=== PATIENT | male | born 2000 | race Two or more races ===

== ENCOUNTER 2024-09-03 14:04 | Inpatient (IN) | payer OTHER ==
[~2024-09-03] VITALS: Ht 200.7 cm; Wt 74.8 kg
[2024-09-03] MEDS ORDERED: FAMOTIDINE/PF 20 MG/2 ML VIAL ONE (17:13)
[2024-09-03] MEDS ORDERED: ONDANSETRON HCL 2 MG/ML VIAL ONE (17:13)
[2024-09-03] MEDS ORDERED: 0.9 % SODIUM CHLORIDE 1,000 ML IV ONE (17:15)
[2024-09-03] MEDS ORDERED: ONDANSETRON HCL 2 MG/ML VIAL IV ONE (17:15)
[2024-09-03] MEDS ORDERED: TAMSULOSIN HCL 0.4 MG CAP PO ONE ×2 (17:15)
[2024-09-03] MEDS ORDERED: KETOROLAC TROMETHAMINE 30 MG VIAL IV ONE (17:15)
[2024-09-03] MEDS ORDERED: FAMOtidine 10 MG/ML (4ML VIAL) IV PUSH ONE (17:15)
[2024-09-03] MEDS ORDERED: levoFLOXacin IN DEXTROSE 5 % 500MG/100ML PIGGYBAG IV ONE ×2 (17:30→18:14)
[2024-09-03] MEDS ORDERED: LEVALBUTEROL HCL 1.25 MG/3 ML SOLUTION IH ONE (17:45)
[2024-09-03] MEDS ORDERED: METHYLPREDNISOLONE SOD SUCC 125 MG VIAL IV ONE (17:45)
[2024-09-03] MEDS ORDERED: IPRATROPIUM BROMIDE 0.5 MG/2.5 ML AMPUL.NEB IH ONE ×2 (17:45→19:34)
[2024-09-03] MEDS ORDERED: KETOROLAC TROMETHAMINE 30 MG VIAL ONE (18:14)
[2024-09-03] MEDS ORDERED: METHYLPREDNISOLONE SOD SUCC 125 MG VIAL ONE (18:14)
[2024-09-03 18:38] LABS: BASO % 0.4 % (0.1-1.2); HEMOGLOBIN 13.9 g/dL (13.7-17.5); LYMPH # 0.46 (1.18-3.74); LYMPH % 8.2 % (19.3-53.1); MEAN CORPUSCULAR HEMOGLOBIN 29.8 pg (25.6-32.2); MONO # 0.25 (0.24-0.82); MONO % 4.4 % (4.7-12.5); NEUT # 4.87 (1.56-6.13); NEUT % 86.6 % (34.0-71.1); RED BLOOD COUNT 4.66 M/uL (4.63-6.08); RED CELL DISTRIBUTION WIDTH 11.7 % (11.6-14.4)
[2024-09-03 18:39] LABS: PLATELET COUNT 120 K/uL (163-369)
[2024-09-03 18:54] LABS: COVID-19 AG NEGATIVE (NEGATIVE)
[2024-09-03 18:57] LABS: INR 1.27; PARTIAL THROMBOPLASTIN TIME 33.7 SECONDS (22.0-34.0); PROTHROMBIN TIME 13.6 SECONDS (9.0-11.5)
[2024-09-03 19:00] LABS: ALBUMIN 3.1 gm/dL (3.4-5.0); BILIRUBIN TOTAL 2.39 mg/dL (0.3-1.2); CALCIUM 8.7 mg/dL (8.5-10.1); CREATININE SERUM 1.05 mg/dL (0.70-1.30); GFR 85.38; GLOBULINA 3.8 G/DL (2.4-3.5); POTASSIUM 3.94 mEq/L (3.5-5.1); TOTAL PROTEIN 6.9 gm/dL (6.4-8.2)
[2024-09-03 19:18] LABS: INFLUENZA A AG NEGATIVE (NEGATIVE); INFLUENZA B AG NEGATIVE (NEGATIVE)
[2024-09-03] MEDS ORDERED: LEVALBUTEROL HCL 0.63 MG/3 ML SOLUTION IH ONE (19:34)
[2024-09-03 19:52] LABS: ABG PH 7.437 (7.35-7.45); ABG PO2 62.8 mmHg (80-100); ABG pCO2 33.3 mmHg (35-45); BASE EXCESS -1.4 mmol/l; SaO2 92.5 %
[2024-09-03 20:44] LABS: URINE APPEARANCE Cloudy; URINE BILIRRUBIN Small (NEGATIVE); URINE BLOOD Large; URINE COLOR Dark Yellow; URINE GLUCOSE Negative (NEGATIVE); URINE KETONE 15 (NEGATIVE); URINE LEUKOCYTE Trace; URINE NITRATE Negative
[2024-09-03 20:48] LABS: URINE BACTERIA 17.1 uL (0.0-1933); URINE EPITHELIAL CELLS 29.2 uL (0.0-38.8); URINE RBC 1908.5 uL (0.0-20.8); URINE WBC 46.5 uL (0.0-23.2)
[2024-09-03 20:49] LABS: TYPE CELLS SQUAMOUS; URINE CAST 0.14 uL (0.0-1.40); URINE PROTEIN 100 (NEGATIVE)
[2024-09-03] MEDS ORDERED: 0.9 % SODIUM CHLORIDE 1,000 ML IV SCH (21:45)
[2024-09-03] MEDS ORDERED: LEVALBUTEROL HCL 1.25 MG/3 ML SOLUTION IH SCH (21:46)
[2024-09-03] MEDS ORDERED: IPRATROPIUM BROMIDE 0.5 MG/2.5 ML AMPUL.NEB IH SCH (21:46)
[2024-09-03] MEDS ORDERED: FAMOTIDINE/PF 20 MG in 0.9 % SODIUM CHLORIDE 8 ML IV PUSH SCH (21:47)
[2024-09-03] MEDS ORDERED: GUAIFEN/DEXTROMETHORPHAN/PE 10 ML BLIST.PACK PO SCH (21:48)
[2024-09-03] MEDS ORDERED: ACETAMINOPHEN 500 MG GEL..CAP PO PRN (22:00)
[2024-09-03 22:54] LABS: allen test SATISFACTORY; mode ROOM AIR; o2 21 %; puncture site RADIAL LEFT
[2024-09-04 02:09] LABS: INR 1.4; PARTIAL THROMBOPLASTIN TIME 31.4 SECONDS (22.0-34.0); PROTHROMBIN TIME 14.9 SECONDS (9.0-11.5)
[2024-09-04 03:40] VITALS: BP 114/73
[2024-09-04] MEDS ORDERED: METHYLPREDNISOLONE SOD SUCC 40 MG VIAL IV STA (08:22)
[2024-09-04] MEDS ORDERED: levoFLOXacin IN DEXTROSE 5 % 150 ML IV SCH (09:00)
[2024-09-04 10:24] VITALS: BP 121/77; O2SAT 96
[2024-09-04 12:46] LABS: AMYLASE 41 U/L (25-115); LIPASE 27 U/L (13-75)
[2024-09-04 13:02] LABS: MYCOPLASMA PNEUMONIAE IGM NON REACTIVE (NO REACTIVE)
[2024-09-04] MEDS ORDERED: METHYLPREDNISOLONE SOD SUCC 40 MG VIAL IV SCH (14:00)
[2024-09-04 16:05] VITALS: O2SAT 99
[2024-09-04 18:02] VITALS: BP 114/73; O2SAT 96
[2024-09-04 20:51] VITALS: O2SAT 98
[2024-09-04 22:36] VITALS: BP 110/51; O2SAT 97
[2024-09-04] MEDS ORDERED: FAMOTIDINE/PF 20 MG/2 ML VIAL ONE (23:41)
[2024-09-05] VITALS (9 sets, daily range): BP systolic 114–116; BP diastolic 68–73; O2SAT 90–97
[2024-09-05 09:02] LABS: BASO % 0.1 % (0.1-1.2); HEMATOCRIT 36.4 % (40.1-51.0); HEMOGLOBIN 12.8 g/dL (13.7-17.5); LYMPH # 0.46 (1.18-3.74); LYMPH % 5.1 % (19.3-53.1); MEAN CORPUSCULAR HEMOGLOBIN 29.9 pg (25.6-32.2); MONO # 0.56 (0.24-0.82); MONO % 6.2 % (4.7-12.5); NEUT # 7.97 (1.56-6.13); NEUT % 87.6 % (34.0-71.1); PLATELET COUNT 210 K/uL (163-369); RED BLOOD COUNT 4.28 M/uL (4.63-6.08); RED CELL DISTRIBUTION WIDTH 12.3 % (11.6-14.4)
[2024-09-05 09:30] LABS: ALBUMIN 2.9 gm/dL (3.4-5.0); BILIRUBIN TOTAL 0.73 mg/dL (0.3-1.2); CALCIUM 8.6 mg/dL (8.5-10.1); CREATININE SERUM 0.89 mg/dL (0.70-1.30); GFR 103.32; GLOBULINA 3.2 G/DL (2.4-3.5); POTASSIUM 4.12 mEq/L (3.5-5.1); TOTAL PROTEIN 6.1 gm/dL (6.4-8.2)
[2024-09-06] VITALS (9 sets, daily range): BP systolic 120–132; BP diastolic 74–88; O2SAT 89–95
[2024-09-06] MEDS ORDERED: METHYLPREDNISOLONE SOD SUCC 125 MG VIAL ONE (12:33)
[2024-09-07] VITALS (9 sets, daily range): BP systolic 122–144; BP diastolic 76–99; O2SAT 89–97
[2024-09-07 06:17] LABS: BASO % 0.4 % (0.1-1.2); HEMATOCRIT 38.9 % (40.1-51.0); HEMOGLOBIN 13.4 g/dL (13.7-17.5); LYMPH # 1.31 (1.18-3.74); LYMPH % 12.1 % (19.3-53.1); MEAN CORPUSCULAR HEMOGLOBIN 29.9 pg (25.6-32.2); MONO % 6.5 % (4.7-12.5); NEUT # 8.07 (1.56-6.13); NEUT % 74.5 % (34.0-71.1); PLATELET COUNT 249 K/uL (163-369); RED BLOOD COUNT 4.48 M/uL (4.63-6.08); RED CELL DISTRIBUTION WIDTH 12.3 % (11.6-14.4)
[2024-09-07 06:45] LABS: CREATININE SERUM 0.89 mg/dL (0.70-1.30); GFR 103.32; POTASSIUM 4.56 mEq/L (3.5-5.1)
[2024-09-07] MEDS ORDERED: METHYLPREDNISOLONE SOD SUCC 40 MG VIAL IV SCH (09:00)
[2024-09-07] MEDS ORDERED: METHYLPREDNISOLONE SOD SUCC 40 MG VIAL ONE (09:58)
[2024-09-08] VITALS (9 sets, daily range): BP systolic 115–135; BP diastolic 69–80; O2SAT 90–97
[2024-09-09] VITALS: O2SAT 93
[2024-09-09 01:50] VITALS: BP 127/74; O2SAT 98
[2024-09-09 05:15] VITALS: O2SAT 93
[2024-09-09 06:32] LABS: BASO % 0.5 % (0.1-1.2); HEMATOCRIT 41.3 % (40.1-51.0); HEMOGLOBIN 14.3 g/dL (13.7-17.5); LYMPH # 1.23 (1.18-3.74); LYMPH % 8.2 % (19.3-53.1); MEAN CORPUSCULAR HEMOGLOBIN 30.2 pg (25.6-32.2); MONO # 1.05 (0.24-0.82); NEUT # 11.62 (1.56-6.13); NEUT % 77.6 % (34.0-71.1); PLATELET COUNT 284 K/uL (163-369); RED BLOOD COUNT 4.73 M/uL (4.63-6.08); RED CELL DISTRIBUTION WIDTH 12.2 % (11.6-14.4)
[2024-09-09 07:49] LABS: ALBUMIN 3.1 gm/dL (3.4-5.0); BILIRUBIN TOTAL 0.75 mg/dL (0.3-1.2); CALCIUM 8.6 mg/dL (8.5-10.1); CREATININE SERUM 0.93 mg/dL (0.70-1.30); GFR 98.21; GLOBULINA 3.2 G/DL (2.4-3.5); POTASSIUM 4.72 mEq/L (3.5-5.1); TOTAL PROTEIN 6.3 gm/dL (6.4-8.2)
[2024-09-09 08:20] VITALS: BP 109/68; O2SAT 94
[2024-09-09 09:03] VITALS: O2SAT 94
== END 2024-09-09 10:29 | disposition home or self-care (01) | DRG 195 ==
LOC: ER 14:58 → MEDJ 22:16
PROVIDERS: General Practice; Internal Medicine; ADMIT Student in an Organized Health Care Education/Training Program; ATTEND Student in an Organized Health Care Education/Training Program
PROC: BW21ZZZ Computerized Tomography (CT Scan) of Abdomen and Pelvis (ICD-10-PCS; principal; 2024-09-03)
PROC: BB24ZZZ Computerized Tomography (CT Scan) of Bilateral Lungs (ICD-10-PCS; 2024-09-03)
PROC: 3E0F7GC Introduction of Other Therapeutic Substance into Respiratory Tract, Via Natural or Artificial Opening (ICD-10-PCS; 2024-09-03)
PROC: BB24ZZZ Computerized Tomography (CT Scan) of Bilateral Lungs (ICD-10-PCS; 2024-09-04)
PROC: 5A0935A Assistance with Respiratory Ventilation, Less than 24 Consecutive Hours, High Flow/Velocity Cannula (ICD-10-PCS; 2024-09-04)
PROC: 4A12X4Z Monitoring of Cardiac Electrical Activity, External Approach (ICD-10-PCS; 2024-09-04)
DX: J18.9 Pneumonia, unspecified organism (principal); J45.998 Other asthma; D69.6 Thrombocytopenia, unspecified; I10 Essential (primary) hypertension; R09.02 Hypoxemia